=== PATIENT | female | born 1980 | race Caucasian/White ===

== ENCOUNTER 2018-07-29 17:57 | Emergency (ER) | payer BC ==
--- NOTE | 2018-07-29 18:52 | ER ---
Nurse's Notes [facility] Name: Delmis Ruffin Age: 38 yrs Sex: Female : 1980 Arrival Date: 07/29/2018 Time: 18:00 Bed 17 Private MD: Diagnosis: Pain in right forearm Presentation: 07/29 18:05 Presenting complaint: Patient states: I was loading something heavy into the bed of a sg gator, when i felt something pop in my right forearm, now i am unable to rotate my lower right arm, also my hand and wrist are a little swollen. Transition of care: patient was not received from another setting of care. Onset of symptoms was July 29, 2018. Risk Assessment: Do you want to hurt yourself or someone else? Patient reports no desire to harm self or others. Initial Sepsis Screen: Does the patient meet any 2 criteria? No. Patient's initial sepsis screen is negative. Does the patient have a suspected source of infection? No. Patient's initial sepsis screen is negative. Care prior to arrival: None. 18:05 Method Of Arrival: Ambulatory 18:05 Acuity: QUETA 4 sg Historical: - Allergies: 18:08 Codeine; sg - Home Meds: 18:08 Divigel transdermal transdermal [Active]; sg - PMHx: 18:08 Low Estrogen; sg - PSHx: 18:08 None; sg - Immunization history:: Adult Immunizations up to date. - Social history:: Smoking status: Patient/guardian denies using tobacco. - Ebola Screening: : Patient negative for fever greater than or equal to 101.5 degrees Fahrenheit, and additional compatible Ebola Virus Disease symptoms Patient denies exposure to infectious person Patient denies travel to an Ebola-affected area in the 21 days before illness onset No symptoms or risks identified at this time. Screenin:51 Abuse screen: Denies threats or abuse. Nutritional screening: No deficits noted. em Tuberculosis screening: No symptoms or risk factors identified. Fall Risk None identified. Assessment: 18:25 General: Appears in no apparent distress. comfortable, Behavior is calm, cooperative. em Pain: Complains of pain in right forearm Pain currently is 4 out of 10 on a pain scale. Neuro: Level of Consciousness is awake, alert, obeys commands, confused, Oriented to person, place, time, situation. Cardiovascular: Capillary refill < 3 seconds Patient's skin is warm and dry. Respiratory: Airway is patent Respiratory effort is even, unlabored, Respiratory pattern is regular, symmetrical. GI: Abdomen is flat. : No signs and/or symptoms were reported regarding the genitourinary system. EENT: No signs and/or symptoms were reported regarding the EENT system. Derm: Skin is intact, Skin is pink, warm \T\ dry. Musculoskeletal: Range of motion: limited in right forearm. 18:35 Reassessment: Patient appears in no apparent distress at this time. I agree with above iw assessment by Missael Yen LVN. Vital Signs: 18:08 BP 132 / 80; Pulse 78; Resp 17; Temp 97.1; Pulse Ox 98% on R/A; sg ED Course: 18:00 Patient arrived in ED. mr 18:00 Imelda Santana FNP-C is PHCP. kb 18:00 Drew Melgar MD is Attending Physician. kb 18:06 Triage completed. sg 18:08 Arm band placed on. sg 18:27 Missael Yen LVN is Primary Nurse. em 18:41 X-ray completed. Portable x-ray completed in exam room. Patient tolerated procedure la2 well. 18:41 Forearm Right XRAY In Process Unspecified. EDMS 18:51 Patient has correct armband on for positive identification. Bed in low position. Call em light in reach. Adult w/ patient. 18:51 No provider procedures requiring assistance completed. em 19:07 Patient did not have IV access during this emergency room visit. em Administered Medications: No medications were administered Outcome: 18:52 Discharge ordered by MD. kb 19:07 Discharged to home ambulatory, with family. em 19:07 Condition: good 19:07 Discharge instructions given to patient, Instructed on discharge instructions, follow up and referral plans. Demonstrated understanding of instructions, follow-up care. 19:08 Patient left the ED. em Signatures: Dispatcher [employer] EDND Imelda Santana FNP-C FNP-Ckb Gay, Steven RN OLIVIA Max Mariana YenMissael LVN LVN em Vickie Noyola RN RN Dottie Lee la2
--- NOTE | 2018-07-29 18:52 | EDPHYS ---
Physician Documentation [facility] Name: Delmis Ruffin Age: 38 yrs Sex: Female : 1980 Arrival Date: 07/29/2018 Time: 18:00 Bed 17 Private MD: ED Physician Drew Melgar HPI: 07/29 18:18 This 38 yrs old Female presents to ER via Ambulatory with complaints of Arm kb Problem. 18:18 The patient or guardian complains of decreased range of motion, pain, that is acute, kb tenderness. The complaints affect the right forearm. Context: The problem was sustained at home, resulted from lifted 75lb deer and threw it into the back of a gator yesterday, right forearm pain since then. Onset: The symptoms/episode began/occurred yesterday. Treatment prior to arrival includes: no previous treatment. Modifying factors: The symptoms are alleviated by nothing. the symptoms are aggravated by nothing. Associated signs and symptoms: Pertinent positives: pain. Severity of symptoms: At their worst the symptoms were moderate, in the emergency department the symptoms are unchanged. The patient has not experienced similar symptoms in the past. The patient has not recently seen a physician. Historical: - Allergies: 18:08 Codeine; sg - Home Meds: 18:08 Divigel transdermal transdermal [Active]; sg - PMHx: 18:08 Low Estrogen; sg - PSHx: 18:08 None; sg - Immunization history:: Adult Immunizations up to date. - Social history:: Smoking status: Patient/guardian denies using tobacco. - Ebola Screening: : Patient negative for fever greater than or equal to 101.5 degrees Fahrenheit, and additional compatible Ebola Virus Disease symptoms Patient denies exposure to infectious person Patient denies travel to an Ebola-affected area in the 21 days before illness onset No symptoms or risks identified at this time. ROS: 18:15 Constitutional: Negative for fever, chills, and weight loss, Cardiovascular: Negative kb for chest pain, palpitations, and edema, Respiratory: Negative for shortness of breath, cough, wheezing, and pleuritic chest pain, Abdomen/GI: Negative for abdominal pain, nausea, vomiting, diarrhea, and constipation, Skin: Negative for injury, rash, and discoloration, Neuro: Negative for headache, weakness, numbness, tingling, and seizure. 18:15 MS/extremity: Positive for injury or acute deformity, pain, tenderness, of the right forearm. Exam: 18:15 Constitutional: This is a well developed, well nourished patient who is awake, alert, kb and in no acute distress. Head/Face: Normocephalic, atraumatic. Chest/axilla: Normal chest wall appearance and motion. Nontender with no deformity. No lesions are appreciated. Cardiovascular: Regular rate and rhythm with a normal S1 and S2. No gallops, murmurs, or rubs. Normal PMI, no JVD. No pulse deficits. Respiratory: Lungs have equal breath sounds bilaterally, clear to auscultation and percussion. No rales, rhonchi or wheezes noted. No increased work of breathing, no retractions or nasal flaring. Abdomen/GI: Soft, non-tender, with normal bowel sounds. No distension or tympany. No guarding or rebound. No evidence of tenderness throughout. Back: No spinal tenderness. No costovertebral tenderness. Full range of motion. Skin: Warm, dry with normal turgor. Normal color with no rashes, no lesions, and no evidence of cellulitis. Neuro: Awake and alert, GCS 15, oriented to person, place, time, and situation. Cranial nerves II-XII grossly intact. Motor strength 5/5 in all extremities. Sensory grossly intact. Cerebellar exam normal. Normal gait. 18:15 Musculoskeletal/extremity: Extremities: grossly normal except: noted in the right forearm: decreased ROM, pain, tenderness, ROM: limited active range of motion, in the right forearm, limited active range of motion due to pain, in the right forearm, Circulation is intact in all extremities. Sensation intact. Vital Signs: 18:08 BP 132 / 80; Pulse 78; Resp 17; Temp 97.1; Pulse Ox 98% on R/A; sg MDM: 18:00 Patient medically screened. kb 18:10 Data reviewed: vital signs, nurses notes. Data interpreted: Pulse oximetry: on room air kb is 98 %. Interpretation: normal. 18:51 Counseling: I had a detailed discussion with the patient and/or guardian regarding: the kb historical points, exam findings, and any diagnostic results supporting the discharge/admit diagnosis, radiology results, the need for outpatient follow up, a family practitioner, a orthopedic surgeon, to return to the emergency department if symptoms worsen or persist or if there are any questions or concerns that arise at home. 07/29 18:04 Order name: Forearm Right XRAY; Complete Time: 18:55 kb Administered Medications: No medications were administered Disposition: 07/29/18 18:52 Discharged to Home. Impression: Pain in right forearm. - Condition is Stable. - Discharge Instructions: Musculoskeletal Pain. - Medication Reconciliation Form, Thank You Letter, Antibiotic Education, Prescription Opioid Use form. - Follow up: Emergency Department; When: As needed; Reason: Worsening of condition. Follow up: Private Physician; When: 2 - 3 days; Reason: Recheck today's complaints, Continuance of care, Re-evaluation by your physician. Addendum: 08/06/2018 16:37 Co-signature as Attending Physician, Drew Melgar MD. g s Signatures: Dispatcher [employer] EDMS Imelda Santana, FOOD SERVICE SPECIALIST-C FOOD SERVICE SPECIALIST-Carl Feliciano RN RN sg Missael Yen, OUTSIDE RESIDENTIAL SALES PROFESSIONAL OUTSIDE RESIDENTIAL SALES PROFESSIONAL em Drew Melgar MD MD Corrections: (The following items were deleted from the chart) 07/29 19:06 18:52 Sling ordered. kb em 19:08 18:52 07/29/2018 18:52 Discharged to Home. Impression: Pain in right forearm. Condition em is Stable. Forms are Medication Reconciliation Form, Thank You Letter, Antibiotic Education, Prescription Opioid Use. Follow up: Emergency Department; When: As needed; Reason: Worsening of condition. Follow up: Private Physician; When: 2 - 3 days; Reason: Recheck today's complaints, Continuance of care, Re-evaluation by your physician. kb
--- NOTE | 2018-07-29 18:54 | RAD REPORT ---
EXAM DESCRIPTION: RAD - Forearm Right - 07/29/2018 6:42 pm CLINICAL HISTORY: PAIN COMPARISON: <Comparisons> FINDINGS: No fracture or dislocation is seen. No aggressive marrow lesion.
== END 2018-07-29 19:08 | disposition home or self-care (01) ==
LOC: ER 17:57
DX: M79.631 Pain in right forearm (principal); Z88.5 Allergy status to narcotic agent
CPT/HCPCS: 99283